=== PATIENT | female | born 1970 | race Caucasian/White ===

== ENCOUNTER 2018-04-17 08:44 | Emergency (ER) | payer SELFPAY ==
[~2018-04-17] VITALS: Ht 152.4 cm; Wt 63.5 kg
[~2018-04-17 08:44] MED LIST: LEVO500T6 PO
[2018-04-17 08:53] VITALS: BP 175/99
--- NOTE | 2018-04-17 09:05 | NUR ---
Dr. Maria evaluating patient at bedside.
[2018-04-17] MEDS ORDERED: KETOROLAC 60 MG/2 ML VIAL IM ONE (09:10)
--- NOTE | 2018-04-17 09:10 | NUR ---
PATIENT PRESENTS TO ED WITH THE CHIEF C/O ADOMINAL PAIN RADIATING TO BACK. DENIES FREQUENCY AND PAIN ON URINATION. C/O NAUSEA AND VOMITING X2. NO VOMITING NOTED AT THIS TIME. DENIES HAVING DIARRHEA. ABDOMEN SOFT, OUND AND TENDER. ACTIVE BOWEL SOUND. SKIN IS PINK/WARM/DRY; AAOX4 WITH EVEN AND STEADY GAIT. PT DENIES ANY FEVER, CP, SOB, OR COUGH AT THIS TIME. PATIENT STATES PAIN OF 10/10 AT THIS TIME; VSS; PATIENT POSITIONED FOR COMFORT; HOB ELEVATED; BEDRAILS UP X2; BED DOWN. ER MD MADE AWARE OF PT STATUS.
--- NOTE | 2018-04-17 09:16 | NUR ---
Dr. Maria re-evaluating patient at bedside.
--- NOTE | 2018-04-17 09:39 | NUR ---
DENIES NAUSEA AT THIS TIME BUT STILL HAS SEVERE ABDOMINAL PAIN. DR. GONZALEZ MADE AWARE.
[2018-04-17] MEDS ORDERED: MORPHINE SULFATE 4 MG/ML SYR IM ONE (09:40)
--- NOTE | 2018-04-17 11:10 | NUR ---
PT C/O EPIGASTRIC PAIN. DR. GONZALEZ MADE AWARE.
[2018-04-17] MEDS ORDERED: DICYCLOMINE HCL LIQUID 20 MG, ALUMINUM HYD/MAG/SIMETHICONE 30 ML, LIDOCAINE VISCOUS 2% ... PO ONE ×3 (11:15)
--- NOTE | 2018-04-17 11:52 | NUR ---
PT APPEARS TO BE RELAXED AND RESTING IN BED. DENIED PAIN AND NAUSEA AT THIS TIME.
--- NOTE | 2018-04-17 11:58 | NUR ---
Patient discharged with v/s stable. Written and verbal after care instructions given and explained. Patient alert, oriented and verbalized understanding of instructions. Ambulatory with steady gait. All questions addressed prior to discharge. ID band removed. Patient advised to follow up with PMD. Rx of MOTRIN, ZOFRAN AND CIPRO given. Patient educated on indication of medication including possible reaction and side effects. Opportunity to ask questions provided and answered.
[2018-04-17 12:00] VITALS: BP 117/71
== END 2018-04-17 11:58 | disposition home or self-care (01) ==
LOC: MED 08:44
DX: N39.0 Urinary tract infection, site not specified (principal); R11.2 Nausea with vomiting, unspecified
CPT/HCPCS: 81002; 96372; 99283; J1885; J2270